=== PATIENT | female | born 1955 | race Asian ===

== ENCOUNTER 2019-03-18 11:19 | Emergency (ER) | payer MEDICARE, OTHER ==
[~2019-03-18] VITALS: Ht 165.1 cm; Wt 68.3 kg
[~2019-03-18 11:19] MED LIST: ASPI-831 GTB; BACTRIM; CALAMINE TOP; CELLCEPT; LASIX; MAGNESIUM; PROGRAF; PROTONIX; oscal
[2019-03-18 11:36] VITALS: Ht 165.1 cm; Wt 68.3 kg
[2019-03-18 14:34] VITALS: BP 132/81; PULSE 75; RESP 15
== END 2019-03-18 14:55 | disposition home or self-care (01) ==
LOC: E/R 11:19
DX: R60.0 Localized edema (principal); Z79.82 Long term (current) use of aspirin; Z94.1 Heart transplant status
CPT/HCPCS: 36415; 71045; 80053; 83690; 83880; 84484; 85025; 93005; 93971